=== PATIENT | female | born 1945 ===

== ENCOUNTER 2018-06-08 07:00 | Day surgery (SDC) | payer OTHER ==
[~2018-06-08] VITALS: Ht 144.8 cm; Wt 44.9 kg
[~2018-06-08 07:00] MED LIST: OMEGA 3 FISH O1 EACH PO; SYNTHROID50 MCG PO
== END 2018-06-09 10:00 | disposition home or self-care (01) ==
LOC: CIR.AMB 07:00 → SURH 11:13 → O/R 11:13 → CIR.AMB 06-09 10:00 → O/R 06-09 10:15 → SURH 06-09 10:15
DX: D27.1 Benign neoplasm of left ovary (principal); E03.8 Other specified hypothyroidism